=== PATIENT | male | born 1995 | race Caucasian/White ===

== ENCOUNTER 2017-10-20 08:48 | Emergency (ER) | payer OTHER ==
[~2017-10-20] VITALS: Ht 180.3 cm; Wt 100.3 kg
[2017-10-20 08:56] VITALS: BP 127/84
== END 2017-10-20 12:19 | disposition home or self-care (01) ==
LOC: ED 10:32
DX: S22.070A Wedge compression fracture of T9-T10 vertebra, initial encounter for closed fracture (principal); V49.59XA Passenger injured in collision with other motor vehicles in traffic accident, initial encounter; Y93.89 Activity, other specified; Y92.89 Other specified places as the place of occurrence of the external cause; Y99.8 Other external cause status
CPT/HCPCS: 72072; 72110; 99284

== ENCOUNTER 2018-09-12 17:12 | Emergency (ER) | payer OTHER ==
[~2018-09-12] VITALS: Ht 177.8 cm; Wt 103.8 kg
[2018-09-12 17:30] VITALS: BP 118/94
[2018-09-12] MEDS ORDERED: KETOROLAC 30 MG/1 ML IM ONE (18:00)
[2018-09-12] MEDS ORDERED: HYDROmorphone 1 MG/ML, 1ML INJ IM ONE (18:00)
--- NOTE | 2018-09-12 18:04 | NUR ---
MAKI RN: PT TO CT BEFORE BEING ABLE TO MEDICATE.
[2018-09-12] MEDS ORDERED: METHOCARBAMOL 750 MG TABLET ONE (18:12)
[2018-09-12] MEDS ORDERED: KETOROLAC 30 MG/1 ML ONE (18:12)
[2018-09-12] MEDS ORDERED: HYDROmorphone 1 MG/ML, 1ML VIAL ONE (18:13)
[2018-09-12] MEDS ORDERED: METHOCARBAMOL 750 MG TABLET PO ONE (18:30)
--- NOTE | 2018-09-12 18:37 | NUR ---
YOMI (RN) IS ASSUMING CARE OF THIS PT AT THIS TIME. SBAR REPORT WAS EXCHANGED AT THE BEDSIDE.
== END 2018-09-12 19:29 | disposition home or self-care (01) ==
LOC: ED 18:20
DX: M51.16 Intervertebral disc disorders with radiculopathy, lumbar region (principal); W18.30XA Fall on same level, unspecified, initial encounter; Y93.89 Activity, other specified; Y92.69 Other specified industrial and construction area as the place of occurrence of the external cause; Y99.8 Other external cause status
CPT/HCPCS: 72128; 72131; 96372; 99284; J1170; J1885

== ENCOUNTER 2019-01-17 15:59 | Emergency (ER) ==
[~2019-01-17] VITALS: Ht 180.3 cm; Wt 102.0 kg
--- NOTE | 2019-01-17 16:21 | NUR ---
[employer] PRESS TENDER: PT TO ROOM FROM [facility] SCANLON.
--- NOTE | 2019-01-17 16:36 | NUR ---
TASK RN: PER PT "I STARTED PEEING ON MYSELF. IT JUST HAPPENS. ALL OF A SUDDEN I'M JUST WET. I FEEL PRESSURE, BUT I CAN'T FEEL. ALL OF THIS HAS BEEN THE LAST COUPLE DAYS. I CAN WALK. BUT I'M IN SO MUCH PAIN. MY SURGEON, DR. DE GUZMAN, SENT ME HERE. HE SAID I MIGHT NEED EMERGENT SURGERY. HE SAID THAT MY SPINAL CANAL MIGHT BE SMALLER." PT PLACED ON NIBP, CONT PULSE OX. NO C/O N/V, TRAUMA, SYNCOPE, CP, SOB.
--- NOTE | 2019-01-17 16:56 | NUR ---
task rn: PAULO ESTABLISHED. BLOOD OBTAINED AND SENT TO LAB. PT TOLERATE WITH NO COMPLICATIONS.
[2019-01-17] MEDS ORDERED: DIPHENHYDRAMINE 50 MG/ML, 1ML ONE (16:58)
[2019-01-17] MEDS ORDERED: MORPHINE SULFATE 4 MG/ML, 1ML ONE ×2 (16:58→17:41)
[2019-01-17] MEDS ORDERED: DIPHENHYDRAMINE 50 MG/ML, 1ML IVPush ONE (17:00)
[2019-01-17] MEDS ORDERED: MORPHINE SULFATE 4 MG/ML, 1ML IVPush ONE (17:00)
[2019-01-17] MEDS ORDERED: SODIUM CHLORIDE FLUSH 10ML SYR IVF ONE (17:00)
--- NOTE | 2019-01-17 17:02 | NUR ---
TASK RN: PT REFUSES URINAL. PT STATES "I'LL WALK TO THE BATHROOM." PT EDUCATED REGARDING RISKS OF FALL. PT VERBALIZED UNDERSTANDING. PT AMBULATORY WITH STEADY GAIT TO BATHROOM.
--- NOTE | 2019-01-17 17:03 | NUR ---
TASK RN: BEDSIDE REPORT TO RANI WADSWORTH.
[2019-01-17 17:15] LABS: BASOPHILS # (AUTO) 0.03 x10^3/uL (0-0.1); BASOPHILS % (AUTO) 0 % (0-1); EOSINOPHILS # (AUTO) 0.12 x10^3/uL (0-0.4); EOSINOPHILS % (AUTO) 2 % (1-7); LYMPHOCYTES # (AUTO) 2.42 x10^3/uL (1-3.4); LYMPHOCYTES % (AUTO) 29 % (22-44); MD NO; MEAN CORPUSCULAR HEMOGLOBIN 30.3 pg (27.5-34.5); MEAN CORPUSCULAR VOLUME 91.9 fL (81-97); MEAN PLATELET VOLUME 8.3 fL (7.4-10.4); MONOCYTES # (AUTO) 0.55 x10^3/uL (0.2-0.8); MONOCYTES % (AUTO) 7 % (2-9); NEUTROPHILS # (AUTO) 5.15 x10^3/uL (1.8-6.8); NEUTROPHILS % (AUTO) 62 % (42-75); PLATELET COUNT 302 x10^3/uL (130-400); RED BLOOD COUNT 5.22 x10^6/uL (4.38-5.82); RED CELL DISTRIBUTION WIDTH 13.3 % (9.4-14.8)
[2019-01-17 17:23] LABS: ANION GAP 4 mmol/L (5-15); CALCIUM 8.9 mg/dL (8.5-10.1); CHLORIDE 110 mmol/L (98-107); CREATININE 0.83 mg/dL (0.7-1.3)
--- NOTE | 2019-01-17 17:29 | NUR ---
REPORT FROM PACHECO SARAVIA. BLADDER SCAN POST VOID, 12ML. CALL LIGHT WITHIN REACH. VSS.
[2019-01-17 17:30] VITALS: BP 133/78
--- NOTE | 2019-01-17 17:50 | NUR ---
PT TO MRI
--- NOTE | 2019-01-17 18:16 | NUR ---
ALL RESULTS BACK, PT FOR RECHECK.
[2019-01-17 18:36] LABS: MICROSCOPIC NOT IND
[2019-01-17 18:45] LABS: CULTURE INDICATED? NO
--- NOTE | 2019-01-17 19:22 | NUR ---
PT RESTING, NAD. AWAITING NEUROSURGEON.
== END 2019-01-17 20:17 | disposition home or self-care (01) ==
LOC: ED 17:36
DX: G89.29 Other chronic pain (principal); M54.5 Low back pain; M48.061 Spinal stenosis, lumbar region without neurogenic claudication
CPT/HCPCS: 36415; 72148; 80048; 81003; 85025; 96374; 96375; 99284; J1200; J2270

== ENCOUNTER 2019-01-18 13:05 | Emergency (ER) | payer OTHER ==
[2019-01-18 14:11] LABS: BASOPHILS # (AUTO) 0.03 x10^3/uL (0-0.1); BASOPHILS % (AUTO) 1 % (0-1); EOSINOPHILS # (AUTO) 0.09 x10^3/uL (0-0.4); EOSINOPHILS % (AUTO) 1 % (1-7); LYMPHOCYTES # (AUTO) 2.14 x10^3/uL (1-3.4); LYMPHOCYTES % (AUTO) 28 % (22-44); MD NO; MEAN CORPUSCULAR HEMOGLOBIN 30.2 pg (27.5-34.5); MEAN CORPUSCULAR HGB CONC 32.9 g/dL (33.2-36.2); MEAN CORPUSCULAR VOLUME 91.9 fL (81-97); MEAN PLATELET VOLUME 8.2 fL (7.4-10.4); MONOCYTES # (AUTO) 0.51 x10^3/uL (0.2-0.8); MONOCYTES % (AUTO) 7 % (2-9); NEUTROPHILS # (AUTO) 4.79 x10^3/uL (1.8-6.8); NEUTROPHILS % (AUTO) 63 % (42-75); PLATELET COUNT 318 x10^3/uL (130-400); RED CELL DISTRIBUTION WIDTH 13.8 % (9.4-14.8)
[2019-01-18 14:17] LABS: ALBUMIN 4.3 g/dL (3.4-5.0); ANION GAP 7 mmol/L (5-15); CALCIUM 9.5 mg/dL (8.5-10.1); CHLORIDE 107 mmol/L (98-107); CREATININE 0.83 mg/dL (0.7-1.3)
--- NOTE | 2019-01-18 15:16 | NUR ---
EEO OFFICER: PT TO ROOM FROM LOBBY VIA W/C
--- NOTE | 2019-01-18 15:28 | NUR ---
ASSUMED CARE OF PATIENT. PATIENT REPORTS INTENSE BACK PAIN THAT MADE HIM "PASS OUT" AND HIT HIS HEAD ON HIS BATHROOM COUNTER. "I CALLED MY SURGEON AND HE TOLD ME TO COME BACK TO THE ER." VS STABLE. PT WATCHING TV IN ROOM. NO ACUTE DISTRESS NOTED. VS STABLE. CALL LIGHT IN PLACE. WILL CONTINUE TO MONITOR.
--- NOTE | 2019-01-18 15:52 | NUR ---
DR TATE IN ROOM.
[2019-01-18 15:59] LABS: MICROSCOPIC INDICATED
--- NOTE | 2019-01-18 16:04 | NUR ---
DR TATE IN ROOM TAKLING WITH PATIENT.
[2019-01-18 16:10] LABS: CULTURE INDICATED? NO
[2019-01-18] MEDS ORDERED: HYDROmorphone 1 MG/ML, 1ML INJ IV ONE (16:30)
[2019-01-18] MEDS ORDERED: PLEASE ENTER WEIGHT MC SCH (16:30)
[2019-01-18 16:43] VITALS: BP 124/85
== END 2019-01-18 16:45 | disposition home or self-care (01) ==
LOC: ED 16:02
DX: G89.29 Other chronic pain (principal); M54.5 Low back pain; R55 Syncope and collapse
CPT/HCPCS: 36415; 80048; 81001; 82040; 85025; 93005; 99284

== ENCOUNTER 2019-03-28 12:10 | Outpatient (CLI) | payer OTHER ==
[2019-03-28 12:26] LABS: BASOPHILS # (AUTO) 0.03 x10^3/uL (0-0.1); BASOPHILS % (AUTO) 0 % (0-1); EOSINOPHILS # (AUTO) 0.08 x10^3/uL (0-0.4); EOSINOPHILS % (AUTO) 1 % (1-7); LYMPHOCYTES # (AUTO) 2.39 x10^3/uL (1-3.4); LYMPHOCYTES % (AUTO) 34 % (22-44); MD NO; MEAN CORPUSCULAR HEMOGLOBIN 29.9 pg (27.5-34.5); MEAN CORPUSCULAR HGB CONC 33.5 g/dL (33.2-36.2); MEAN CORPUSCULAR VOLUME 89.5 fL (81-97); MEAN PLATELET VOLUME 8.1 fL (7.4-10.4); MONOCYTES # (AUTO) 0.52 x10^3/uL (0.2-0.8); MONOCYTES % (AUTO) 7 % (2-9); NEUTROPHILS # (AUTO) 3.97 x10^3/uL (1.8-6.8); NEUTROPHILS % (AUTO) 57 % (42-75); PLATELET COUNT 340 x10^3/uL (130-400); RED BLOOD COUNT 4.99 x10^6/uL (4.38-5.82); RED CELL DISTRIBUTION WIDTH 13.6 % (9.4-14.8)
[2019-03-28 12:34] LABS: ANION GAP 5 mmol/L (5-15); CALCIUM 9.2 mg/dL (8.5-10.1); CHLORIDE 110 mmol/L (98-107); CREATININE 0.92 mg/dL (0.7-1.3)
== END 2019-03-28 23:59 | disposition home or self-care (01) ==
LOC: LAB 12:10
PROVIDERS: ATTEND Orthopaedic Surgery
DX: Z01.818 Encounter for other preprocedural examination (principal)
CPT/HCPCS: 36415; 80048; 85025

== ENCOUNTER 2019-05-17 00:30 | Observation (INO) | payer OTHER ==
[~2019-05-17] VITALS: Ht 175.3 cm; Wt 105.0 kg
[2019-05-17] MEDS ORDERED: TRANEXAMIC ACID 100 MG/ML, 10ML ONE (01:18)
[2019-05-17] MEDS ORDERED: LORazepam 2 MG/ML, 1ML ONE (01:20)
[2019-05-17] MEDS ORDERED: TRANEXAMIC ACID 100 MG/ML, 10ML TP ONE (01:30)
[2019-05-17] MEDS ORDERED: LORazepam 2 MG/ML, 1ML IVPush PRN (01:30)
[2019-05-17 01:33] LABS: BASOPHILS # (AUTO) 0.03 x10^3/uL (0-0.1); BASOPHILS % (AUTO) 0 % (0-1); EOSINOPHILS # (AUTO) 0.09 x10^3/uL (0-0.4); EOSINOPHILS % (AUTO) 1 % (1-7); LYMPHOCYTES # (AUTO) 3.25 x10^3/uL (1-3.4); LYMPHOCYTES % (AUTO) 30 % (22-44); MD NO; MEAN CORPUSCULAR HEMOGLOBIN 29.7 pg (27.5-34.5); MEAN CORPUSCULAR HGB CONC 33.4 g/dL (33.2-36.2); MEAN CORPUSCULAR VOLUME 89.1 fL (81-97); MEAN PLATELET VOLUME 8.1 fL (7.4-10.4); MONOCYTES # (AUTO) 0.79 x10^3/uL (0.2-0.8); MONOCYTES % (AUTO) 7 % (2-9); NEUTROPHILS # (AUTO) 6.68 x10^3/uL (1.8-6.8); NEUTROPHILS % (AUTO) 62 % (42-75); PLATELET COUNT 400 x10^3/uL (130-400); RED BLOOD COUNT 4.76 x10^6/uL (4.38-5.82); RED CELL DISTRIBUTION WIDTH 13.4 % (9.4-14.8)
--- NOTE | 2019-05-17 01:33 | NUR ---
DR. BARLOW WAS IN TO RE-EVAL PT. BLEEDING TO ROOF OF MOUTH IS NOW CONTROLLED. PT. MORE CALM.
--- NOTE | 2019-05-17 01:37 | NUR ---
SUMMARY NOTE: BIB [facility] FOR C/O FALL IN BATHROOM TONIGHT. IT APPEARS PT. HIT FACE, MAYBE ON SINK. PT. DOES NOT RECALL THE FALL. FAMILY CALLED EMS. PT. SPITTING UP LARGE AMOUNTS OF BLOOD CLOTS. PT. A&O X 2. PER EMS EN ROUTE WAS INITIALLY A&O X 4 BUT HAS SINCE BEEN DETERORATING. PERRL. BRENNAN X 4. SLIGHTLY SLURRED SPEECH NOTED. PT. DENIES DRUGS OR ETOH. DR. BARLOW WAS IN TO EVAL PT ON ARRIVAL. PT. WAS TAKEN TO CT RIGHT AWAY. ALL MONITORS WERE PLACED WHEN ARRIVING BACK TO ROOM. THIS RN GAVE BS REPORT TO RANI MCCAULEY. PT. WAS MEDCIATED PER MAR WITH GOOD EFFECT. PT. NOW A&O X 4, SPEECH REMAINS SLIGHLY SLURRED BUT PT. MUCH IMPROVED. RANI MCCAULEY ASSUMING FULL CARE AT THIS TIME.
[2019-05-17 01:45] LABS: ALBUMIN 3.8 g/dL (3.4-5.0); ANION GAP 7 mmol/L (5-15); CALCIUM 8.1 mg/dL (8.5-10.1); CHLORIDE 113 mmol/L (98-107); CREATININE 0.79 mg/dL (0.7-1.3)
[2019-05-17] MEDS ORDERED: MORPHINE SULFATE 4 MG/ML, 1ML IVPush PRN (02:30)
[2019-05-17] MEDS ORDERED: ONDANSETRON 2MG/ML, 2ML IVPush PRN ×2 (02:30→03:00)
[2019-05-17] MEDS ORDERED: SODIUM CHLORIDE FLUSH 10ML SYR IVF PRN (02:30)
[2019-05-17] MEDS ORDERED: POTASSIUM CHLORIDE 20 MEQ, MAGNESIUM SULFATE 2 GM, THIAMINE 200 MG, MVI ADULT 10 ML, FO... IV SCH (02:38)
--- NOTE | 2019-05-17 02:52 | NUR ---
PT RESTING WITH EYES CLOSED. VITALS WNL. MONITOR IN PLACE.
[2019-05-17] MEDS ORDERED: hydrALAzine 20 MG/ML, 1ML IVPush PRN (03:00)
[2019-05-17 03:12] LABS: INTERNATIONAL NORMALIZED RATIO 1.02 (0.93-1.1); PROTHROMBIN TIME 10.8 Seconds (9.6-11.5)
[2019-05-17 03:14] LABS: ALBUMIN 3.4 g/dL (3.4-5.0); BILIRUBIN, DIRECT 0.1 mg/dL (0.1-0.2)
[2019-05-17 03:24] LABS: BILIRUBIN,INDIRECT 0.1 mg/dL (0.0-2.0); BILIRUBIN,TOTAL 0.2 mg/dL (0.2-1.0); TOTAL PROTEIN 6.9 g/dL (6.4-8.2)
[2019-05-17] MEDS ORDERED: CYCL-259 PO (04:12)
[2019-05-17] MEDS ORDERED: OXYC-306 PO (04:12)
[2019-05-17 04:13] VITALS: BP 101/66
[2019-05-17] MEDS: LACTULOSE 10 GM/15 ML UDC PO SCH ×3 (05:28→16:11)
[2019-05-17] MEDS: LIDODERM 5% PATCH TD PRN ×2 (08:22→19:47)
[2019-05-17 08:49] VITALS: BP 115/77
[2019-05-17 09:07] LABS: AMPHETAMINE SCREEN, URINE Negative (Negative); BARBITURATE SCREEN, URINE Negative (Negative); BENZODIAZEPINE SCREEN, URINE Positive (Negative); CANNABINOID SCREEN, URINE Negative (Negative); COCAINE SCREEN, URINE Negative (Negative); METHADONE SCREEN, URINE Negative (Negative); OPIATE SCREEN, URINE Negative (Negative)
[2019-05-17 13:21] VITALS: BP 108/70
[2019-05-17] MEDS: ACETAMINOPHEN 325 MG TABLET PO PRN (13:48)
[2019-05-17] MEDS: OXYcodone/APAP 7.5/325MG TABLET PO PRN ×3 (16:54→23:11)
[2019-05-17 18:57] VITALS: BP 104/64
[2019-05-17] MEDS: DIPHENHYDRAMINE 50 MG CAPSULE PO PRN (19:33)
[2019-05-17 22:08] VITALS: BP 119/68
[2019-05-18 05:01] LABS: BASOPHILS # (AUTO) 0.04 x10^3/uL (0-0.1); BASOPHILS % (AUTO) 1 % (0-1); EOSINOPHILS # (AUTO) 0.14 x10^3/uL (0-0.4); EOSINOPHILS % (AUTO) 2 % (1-7); LYMPHOCYTES # (AUTO) 3.13 x10^3/uL (1-3.4); LYMPHOCYTES % (AUTO) 48 % (22-44); MD NO; MEAN CORPUSCULAR HEMOGLOBIN 30.2 pg (27.5-34.5); MEAN CORPUSCULAR HGB CONC 33.6 g/dL (33.2-36.2); MEAN CORPUSCULAR VOLUME 89.9 fL (81-97); MEAN PLATELET VOLUME 8.1 fL (7.4-10.4); MONOCYTES # (AUTO) 0.63 x10^3/uL (0.2-0.8); MONOCYTES % (AUTO) 10 % (2-9); NEUTROPHILS # (AUTO) 2.62 x10^3/uL (1.8-6.8); NEUTROPHILS % (AUTO) 40 % (42-75); PLATELET COUNT 256 x10^3/uL (130-400); RED BLOOD COUNT 3.67 x10^6/uL (4.38-5.82); RED CELL DISTRIBUTION WIDTH 13.6 % (9.4-14.8)
[2019-05-18 05:07] LABS: ALBUMIN 3.1 g/dL (3.4-5.0); ANION GAP 3 mmol/L (5-15); CHLORIDE 110 mmol/L (98-107)
[2019-05-18 05:12] LABS: ALANINE AMINOTRANSFERASE 32 U/L (12-78); ALKALINE PHOSPHATASE 108 U/L (45-117); BILIRUBIN,TOTAL 0.3 mg/dL (0.2-1.0); CREATININE 0.73 mg/dL (0.7-1.3); TOTAL PROTEIN 6.2 g/dL (6.4-8.2)
[2019-05-18 08:54] VITALS: BP 122/85
[2019-05-18] MEDS: OXYcodone/APAP 7.5/325MG TABLET PO PRN ×2 (09:22→15:45)
[2019-05-18] MEDS: DIPHENHYDRAMINE 50 MG CAPSULE PO PRN (09:24)
[2019-05-18] MEDS: ORAJEL 7GM TUBE MM PRN (11:28)
[2019-05-18] MEDS: ACETAMINOPHEN 325 MG TABLET PO PRN ×2 (13:28→17:54)
[2019-05-18] MEDS ORDERED: ENOXAPARIN 40 MG/0.4 ML SQ SCH (14:00)
[2019-05-18 14:12] VITALS: BP 126/86
[2019-05-18 19:04] VITALS: BP 120/80
[2019-05-19 01:23] VITALS: BP 110/71
[2019-05-19] MEDS: OXYcodone/APAP 7.5/325MG TABLET PO PRN (05:42)
[2019-05-19 06:31] LABS: BASOPHILS # (AUTO) 0.04 x10^3/uL (0-0.1); BASOPHILS % (AUTO) 1 % (0-1); EOSINOPHILS % (AUTO) 2 % (1-7); LYMPHOCYTES # (AUTO) 2.84 x10^3/uL (1-3.4); LYMPHOCYTES % (AUTO) 42 % (22-44); MD NO; MEAN CORPUSCULAR HGB CONC 33.3 g/dL (33.2-36.2); MEAN CORPUSCULAR VOLUME 90.1 fL (81-97); MEAN PLATELET VOLUME 8.1 fL (7.4-10.4); MONOCYTES # (AUTO) 0.47 x10^3/uL (0.2-0.8); MONOCYTES % (AUTO) 7 % (2-9); NEUTROPHILS # (AUTO) 3.32 x10^3/uL (1.8-6.8); NEUTROPHILS % (AUTO) 49 % (42-75); PLATELET COUNT 324 x10^3/uL (130-400); RED BLOOD COUNT 4.07 x10^6/uL (4.38-5.82); RED CELL DISTRIBUTION WIDTH 13.5 % (9.4-14.8)
[2019-05-19 06:37] LABS: ANION GAP 7 mmol/L (5-15); CALCIUM 8.9 mg/dL (8.5-10.1); CHLORIDE 106 mmol/L (98-107); CREATININE 0.93 mg/dL (0.7-1.3)
[2019-05-19 07:05] VITALS: BP 104/66
[2019-05-19] MEDS: ORAJEL 7GM TUBE MM PRN (08:36)
[2019-05-19 12:41] VITALS: BP 118/75
== END 2019-05-19 13:01 | disposition home or self-care (01) ==
LOC: ED 00:59 → OBSVTOIN 02:11 → EDIP 02:11 → INTOOBSV 02:11 → 4WST 04:11 → 4EST 22:16
PROVIDERS: ADMIT Family Medicine; ATTEND Internal Medicine
DX: R55 Syncope and collapse (principal); D89.89 Other specified disorders involving the immune mechanism, not elsewhere classified; S01.512A Laceration without foreign body of oral cavity, initial encounter; G92 Toxic encephalopathy; M54.5 Low back pain; M51.16 Intervertebral disc disorders with radiculopathy, lumbar region; E66.9 Obesity, unspecified; W18.39XA Other fall on same level, initial encounter; Z79.899 Other long term (current) drug therapy; Y93.89 Activity, other specified; Y92.091 Bathroom in other non-institutional residence as the place of occurrence of the external cause; Z90.49 Acquired absence of other specified parts of digestive tract
CPT/HCPCS: 36415; 70450; 70486; 70551; 72125; 80048; 80053; 80076; 80307; 82040; 82140; 82607; 84443; 85025; 85610; 85730; 93306; 95819; 96365; 96366; 96372; 96375; 99285; G0378; J1650; J2060; J3411; J3475; J3480; J7042